=== PATIENT | female | born 1995 | race Caucasian/White ===

== ENCOUNTER 2019-04-04 17:31 | Outpatient (CLI) | payer BC | END 2019-04-04 20:41 | disposition home or self-care (01) | LOC: OBT 17:31 → L-D 17:32 → OBT 20:41 | DX: O36.8130 Decreased fetal movements, third trimester, not applicable or unspecified (principal); Z3A.37 37 weeks gestation of pregnancy | CPT/HCPCS: 76815; 76818 ==

== ENCOUNTER 2019-04-12 23:00 | Inpatient (IN) | payer BC ==
[2019-04-12] MEDS: LACTATED RINGER'S 1,000 ML IV (23:48)
[2019-04-13] MEDS ORDERED: CEFAZOLIN 2 GM/50 ML (PMX) 50 ML IVPB
[2019-04-13 00:44] LABS: ADD MAN DIFF? NO
[2019-04-13 00:45] LABS: BASOPHILS % 0.2 % (0.0-2.0); EOSINOPHILS # 0.1 10^3/ul (0.0-0.5); EOSINOPHILS % 1.1 % (0.0-7.0); HEMATOCRIT 36.3 % (37.0-47.0); HEMOGLOBIN 12.1 g/dl (12.0-16.0); LYMPHOCYTES # 2.5 10^3/ul (0.8-2.9); LYMPHOCYTES % 27.5 % (15.0-51.0); MEAN CORPUSCULAR HEMOGLOBIN 30.9 pg (29.0-33.0); MEAN CORPUSCULAR HGB CONC 33.3 g/dl (32.0-37.0); MEAN CORPUSCULAR VOLUME 92.6 fl (82.0-101.0); MEAN PLATELET VOLUME 11.8 fl (7.4-10.4); MONOCYTE # 0.7 10^3/ul (0.3-0.9); MONOCYTES % 8.1 % (0.0-11.0); NEUTROPHIL # 5.6 10^3/ul (1.6-7.5); NEUTROPHILS % 62.7 % (39.0-77.0); PLATELET COUNT 185 10^3/UL (140-415); RED BLOOD COUNT 3.92 10^6/ul (4.20-5.40); RED CELL DISTRIBUTION WIDTH 15.1 % (11.5-14.5)
[2019-04-13] MEDS: DIPHENHYDRAMINE 50 MG INJ IV ×2 (00:45→22:31)
[2019-04-13] MEDS: LACTATED RINGER'S 1,000 ML IV ×3 (00:45→11:20)
[2019-04-13 01:23] LABS: INR 0.85; PROTIME 11.7 Sec (11.9-14.9); PT RATIO 0.9
[2019-04-13 01:24] LABS: PARTIAL THROMBOPLASTIN TIME 23.3 Sec (23.0-35.0)
[2019-04-13 01:32] LABS: HEPATITIS B SURFACE ANTIGEN NEGATIVE (NEGATIVE)
[2019-04-13] MEDS ORDERED: morphine SULFATE/PF (10 MG/10 ML) INJ (10:32)
[2019-04-13] MEDS ORDERED: ONDANSETRON 4 MG INJ (10:42)
[2019-04-13] MEDS ORDERED: METOCLOPRAMIDE 10 MG INJ (10:42)
[2019-04-13] MEDS ORDERED: EPHEDrine 25 MG/5 ML SYG (10:46)
[2019-04-13] MEDS ORDERED: PHENYLephrine 10 MG INJ (10:46)
[2019-04-13] MEDS ORDERED: MIDAZOLAM 1 MG/ML 2 ML INJ (11:05)
[2019-04-13] MEDS ORDERED: OXYTOCIN 10 UNIT INJ (11:08)
[2019-04-13] MEDS ORDERED: ZOLPIDEM 5 MG TAB PO (11:30)
[2019-04-13] MEDS ORDERED: MIDAZOLAM 1 MG/ML 2 ML INJ IV (11:30)
[2019-04-13] MEDS ORDERED: DIPHENHYDRAMINE 50 MG INJ IV (11:30)
[2019-04-13] MEDS ORDERED: NALOXONE (0.4 MG/ML) INJ IV (11:30)
[2019-04-13] MEDS ORDERED: NALBUPHINE HCL (10 MG/1 ML) INJ IV (11:30)
[2019-04-13] MEDS ORDERED: ONDANSETRON 4 MG INJ IV (11:30)
[2019-04-13] MEDS ORDERED: MEPERIDINE 25 MG INJ IV (11:30)
[2019-04-13] MEDS ORDERED: HYDROmorphONE 0.5 MG/0.5 ML SYG IV (11:30)
[2019-04-13] MEDS ORDERED: DIPHENHYDRAMINE 50 MG INJ (11:32)
[2019-04-13] MEDS ORDERED: OXYTOCIN 30 UNITS/LR 1,000 ML IV (11:48)
[2019-04-13] MEDS: OXYTOCIN 30 UNITS/LR 500 ML IV ×2 (12:03→16:04)
[2019-04-13 15:11] LABS: RAPID PLASMA REAGIN NONREACTIVE (NR)
[2019-04-13] MEDS: DEXTROSE 5%-LR 1,000 ML IV ×2 (15:55→23:55)
[2019-04-13] MEDS ORDERED: MISOPROSTOL 200 MCG TAB PR ×2 (16:00)
[2019-04-13] MEDS ORDERED: METHYLERGONOVINE 0.2 MG TAB PO (16:00)
[2019-04-13] MEDS ORDERED: METHYLERGONOVINE 0.2 MG INJ IM ×2 (16:00)
[2019-04-13] MEDS ORDERED: OXYTOCIN 30 UNITS/LR 500 ML IV ×2 (16:00)
[2019-04-13] MEDS ORDERED: CARBOPROST 250 MCG INJ IM ×2 (16:00)
[2019-04-13] MEDS: LANOLIN HPA 1 PKT TOP (19:22)
[2019-04-13] MEDS: SENNA/DOCUSATE NA (8.6MG/50MG) TAB PO (22:31)
[2019-04-14] MEDS: KETOROLAC 30 MG INJ IV ×2 (00:16→06:25)
[2019-04-14] MEDS: LACTATED RINGER'S 1,000 ML IV (01:30)
[2019-04-14] MEDS: HYDROmorphONE 0.5 MG/0.5 ML SYG IV (05:16)
[2019-04-14 08:19] LABS: ADD MAN DIFF? NO
[2019-04-14 08:28] LABS: BASOPHILS % 0.2 % (0.0-2.0); EOSINOPHILS # 0.1 10^3/ul (0.0-0.5); EOSINOPHILS % 0.5 % (0.0-7.0); HEMATOCRIT 34.9 % (37.0-47.0); HEMOGLOBIN 11.5 g/dl (12.0-16.0); LYMPHOCYTES # 1.5 10^3/ul (0.8-2.9); LYMPHOCYTES % 12.4 % (15.0-51.0); MEAN CORPUSCULAR HEMOGLOBIN 30.5 pg (29.0-33.0); MEAN CORPUSCULAR VOLUME 92.6 fl (82.0-101.0); MEAN PLATELET VOLUME 11.2 fl (7.4-10.4); MONOCYTES % 8.4 % (0.0-11.0); NEUTROPHIL # 9.1 10^3/ul (1.6-7.5); NEUTROPHILS % 77.9 % (39.0-77.0); PLATELET COUNT 167 10^3/UL (140-415); RED BLOOD COUNT 3.77 10^6/ul (4.20-5.40); RED CELL DISTRIBUTION WIDTH 14.8 % (11.5-14.5)
[2019-04-14 08:28] LABS: WHITE BLOOD COUNT 11.7 10^3/ul (4.8-10.8)
[2019-04-14] MEDS: SENNA/DOCUSATE NA (8.6MG/50MG) TAB PO ×2 (08:55→21:26)
[2019-04-14] MEDS: DEXTROSE 5%-LR 1,000 ML IV ×3 (08:58→23:55)
[2019-04-14] MEDS ORDERED: DIPHTH/TET/ACEL PERTUSS (ADULT) 0.5 ML VIAL IM* (11:00)
[2019-04-14] MEDS: HYDROCODONE/APAP (5/325) TAB NGT (11:41)
[2019-04-14] MEDS: HYDROCODONE/APAP (5/325) TAB GTB ×2 (14:58→21:26)
[2019-04-14] MEDS: IBUPROFEN 800 MG TAB PO ×2 (14:58→21:26)
[2019-04-15] MEDS: HYDROCODONE/APAP (5/325) TAB NGT ×2 (02:42→21:40)
[2019-04-15] MEDS: HYDROCODONE/APAP (5/325) TAB GTB ×3 (05:41→16:33)
[2019-04-15] MEDS: IBUPROFEN 800 MG TAB PO ×3 (05:42→21:40)
[2019-04-15] MEDS: SENNA/DOCUSATE NA (8.6MG/50MG) TAB PO ×2 (10:22→21:39)
[2019-04-15] MEDS ORDERED: DIPHTH/TET/ACEL PERTUSS (ADULT) 0.5 ML VIAL IM* (12:00)
[2019-04-15] MEDS: MAGNESIUM HYDROXIDE 30ML CUP PO (21:40)
[2019-04-16] MEDS: IBUPROFEN 800 MG TAB PO (05:29)
[2019-04-16] MEDS: HYDROCODONE/APAP (5/325) TAB GTB (05:30)
[2019-04-16] MEDS: SENNA/DOCUSATE NA (8.6MG/50MG) TAB PO (08:48)
[2019-04-16] MEDS: MEASLES,MUMPS,RUBELLA VACCINE INJ SC* (09:00)
[2019-04-16] MEDS: HYDROCODONE/APAP (5/325) TAB NGT (11:43)
[2019-04-16] MEDS: DIPHTH/TET/ACEL PERTUSS (ADULT) 0.5 ML VIAL IM* (11:46)
== END 2019-04-16 13:54 | disposition home or self-care (01) | DRG 788 ==
LOC: OBT 23:00 → L-D 23:03 → OBT 23:40 → L-D 23:40 → PP1 04-13 14:39
PROVIDERS: Obstetrics & Gynecology
PROC: 10D00Z1 Extraction of Products of Conception, Low, Open Approach (ICD-10-PCS; principal; 2019-04-13 10:30)
PROC: 4A1HXCZ Monitoring of Products of Conception, Cardiac Rate, External Approach (ICD-10-PCS; 2019-04-13 10:30)
DX: O36.63X0 Maternal care for excessive fetal growth, third trimester, not applicable or unspecified (principal); O99.824 Streptococcus B carrier state complicating childbirth; Z3A.39 39 weeks gestation of pregnancy; Z37.0 Single live birth; Z23 Encounter for immunization
CPT/HCPCS: 85025; 85610; 85730; 86592; 86850; 86900; 86901; 87340; 90715; 99464